=== PATIENT | female | born 1990 | race Caucasian/White ===

== ENCOUNTER → 2017-07-31 | Outpatient (CLI) | payer MEDICAID ==
--- NOTE | 2017-07-31 10:20 | RADIOLOGY REPORT (SQ) ---
EXAM DESCRIPTION: SHOULDER BILAT 2 OR MORE VIEWS COMPLETED DATE/TIME: 07/31/2017 10:12 am REASON FOR STUDY: PAIN IN RIGHT SHOULDER, PAIN IN LEFT SHOULDER M54.12 RADICULOPATHY, CERVICAL ZEESHAN ON M25.512 PAIN IN LEFT SHOULDER M25.511 PAIN IN RIGHT SHOULDER COMPARISON: 01/14/2015. NUMBER OF VIEWS: Three views. TECHNIQUE: Internal rotation, external rotation, and Y view images acquired of the right and left sh oulder. LIMITATIONS: None. FINDINGS: MINERALIZATION: Normal. BONES: No acute fracture or dislocation. No worrisome bone lesions. No significant osteophytes. GLENOHUMERAL JOINT: No significant findings. ACROMIOCLAVICULAR JOINT: No large osteophytes. SOFT TISSUES: No calcifications. VISUALIZED RIBS, SPINE, AND LUNG: No other significant finding. OTHER: No other significant finding. IMPRESSION: NEGATIVE STUDY OF THE RIGHT AND LEFT SHOULDERS. NO EXPLANATION FOR PAIN. TECHNICAL DOCUMENTATION: JOB ID: [id number] [employer]- All Rights Reserved
--- NOTE | 2017-07-31 10:21 | RADIOLOGY REPORT (SQ) ---
EXAM DESCRIPTION: C SP 4 OR 5 VIEWS COMPLETED DATE/TIME: 07/31/2017 10:12 am REASON FOR STUDY: RADICULOPATHY, CERVICAL REGION M54.12 RADICULOPATHY, CERVICAL REGION M25.512 RADHA N IN LEFT SHOULDER M25.511 PAIN IN RIGHT SHOULDER COMPARISON: None. NUMBER OF VIEWS: Five views. TECHNIQUE: AP, lateral, obliques and odontoid radiographic images acquired of the cervical spine. LIMITATIONS: None. FINDINGS: MINERALIZATION: Normal. ALIGNMENT: Anatomic. VERTEBRAE: Vertebral bodies of normal height. DISCS: No significant osteophytes or sclerosis. Disc height maintained. FORAMINA: No osteophytes or foraminal narrowing. LATERAL AND POSTERIOR ELEMENTS: Facets, lateral masses and spinous processes without significant find ings. HARDWARE: None in the spine. SOFT TISSUES: No masses or calcifications. Lung apices clear. OTHER: No other significant finding. IMPRESSION: NO SIGNIFICANT RADIOGRAPHIC FINDING IN THE CERVICAL SPINE. TECHNICAL DOCUMENTATION: JOB ID: [id number] [employer]- All Rights Reserved
== END ==
LOC: OD 09:04
PROVIDERS: ATTEND Physician Assistant
DX: M25.512 Pain in left shoulder (principal); M25.511 Pain in right shoulder; M54.12 Radiculopathy, cervical region
CPT/HCPCS: 72050

== ENCOUNTER 2018-04-23 12:56 | Emergency (ER) | payer MEDICAID ==
[2018-04-23 14:19] LABS: ABSOLUTE BASOPHILS # (AUTO) 0.1 10^3/uL (0.0-0.2); ABSOLUTE EOSINOPHILS # (AUTO) 0.5 10^3/uL (0.0-0.6); ABSOLUTE MONOCYTES (AUTO) 0.4 10^3/uL (0.1-1.4); ABSOLUTE NEUT (AUTO) 3.6 10^3/uL (1.7-8.2); BASOPHILS % (AUTO) 1.1 % (0-2); EOSINOPHILS % (AUTO) 7.5 % (0-6); HEMATOCRIT 37.7 % (36.0-47.0); HEMOGLOBIN 12.5 g/dL (12.0-15.5); LYMPHOCYTES % (AUTO) 30.6 % (13-45); MEAN CORPUSCULAR HEMOGLOBIN 25.3 pg (27.0-33.4); MEAN CORPUSCULAR HGB CONC 33.1 g/dL (32.0-36.0); MEAN CORPUSCULAR VOLUME 76 fl (80-97); MONOCYTES % (AUTO) 5.8 % (3-13); PLATELET COUNT 243 10^3/uL (150-450); RED BLOOD COUNT 4.93 10^6/uL (3.72-5.28); RED CELL DISTRIBUTION WIDTH 15.4 % (11.5-14.0); TOTAL CELLS COUNTED % (AUTO) 100 %; WHITE BLOOD COUNT 6.6 10^3/uL (4.0-10.5)
[2018-04-23 14:44] LABS: ANION GAP 10 (5-19); BLOOD UREA NITROGEN 12 mg/dL (7-20); CARBON DIOXIDE 29 mmol/L (22-30); CHLORIDE 104 mmol/L (98-107); GLUCOSE 83 mg/dL (75-110); POTASSIUM 4.1 mmol/L (3.6-5.0)
[2018-04-23 16:12] LABS: APPEARANCE,URINE SLIGHTLY-CLOUDY; BILIRUBIN,URINE NEGATIVE (NEGATIVE); COLOR,URINE YELLOW; GLUCOSE, URINE NEGATIVE (NEGATIVE); KETONES,URINE NEGATIVE (NEGATIVE); LEUKOCYTE ESTERASE,URINE NEGATIVE (NEGATIVE); NITRITE,URINE NEGATIVE (NEGATIVE); PROTEIN,URINE NEGATIVE (NEGATIVE); URINE SPECIFIC GRAVITY 1.021; UROBILINOGEN,URINE NEGATIVE mg/dL (<2.0)
--- NOTE | 2018-04-23 16:58 | RADIOLOGY REPORT (SQ) ---
EXAM DESCRIPTION: U/S NON OB PEL W/DOPPLER COMPLETED DATE/TIME: 04/23/2018 4:47 pm REASON FOR STUDY: llq pain LMP 04/09/2018 COMPARISON: None. TECHNIQUE: Dynamic and static grayscale images acquired of the pelvis via transabdominal approach an d recorded on PACS. Additional selected color Doppler and spectral images recorded. LIMITATIONS: Bowel gas prevented evaluation of the ovaries. FINDINGS: UTERUS: Contour normal. No mass. ENDOMETRIAL STRIPE: No focal or generalized thickening. No masses. CERVIX: 3.3 cm. Small nabothian cyst. RIGHT OVARY AND DOPPLER: Ovary obscured by gas. LEFT OVARY AND DOPPLER: Ovary obscured by gas. FREE FLUID: None noted. OTHER: No other significant finding. MEASUREMENTS: UTERUS: 9.6 x 4.6 x 3.8 cm. ENDOMETRIAL STRIPE: 2 mm. RIGHT OVARY: Ovary not seen LEFT OVARY: Ovary not seen IMPRESSION: Small nabothian cysts. Study is otherwise unremarkable but limited as described. TECHNICAL DOCUMENTATION: JOB ID: [id number] [employer]- All Rights Reserved Rev Reading location - IP/workstation name: [email or web address]
--- NOTE | 2018-04-23 17:18 | ER Document Report ---
ED General - General Chief Complaint: Abdominal Pain Stated Complaint: ABDOMINAL PAIN Time Seen by Provider: 04/23/18 13:44 TRAVEL OUTSIDE OF THE [place]. IN LAST 30 DAYS: No - Related Data Allergies/Adverse Reactions: naproxen [Naproxen] Allergy (Verified 04/23/18 12:58) Past Medical History - Social History Smoking Status: Current Every Day Smoker Chew tobacco use (# tins/day): No Frequency of alcohol use: None Drug Abuse: Marijuana Family History: Reviewed & Not Pertinent Patient has suicidal ideation: No Patient has homicidal ideation: No Pulmonary Medical History: Reports: Hx Asthma Renal/ Medical History: Denies: Hx Peritoneal Dialysis Psychiatric Medical History: Reports: Hx Attention Deficit Hyperactivity Disorder, Hx Bipolar Disorder, Hx Depression Traumatic Medical History: Reports: Hx Fractures - shoulder, hip Past Surgical History: Reports: Hx Section - X3, Hx Orthopedic Surgery - Hip surgeries, Hx Tubal Ligation - Immunizations Hx Diphtheria, Pertussis, Tetanus Vaccination: Yes Physical Exam - Vital signs Vitals: Temp Pulse Resp BP Pulse Ox 98.5 F 88 16 120/62 100 04/23/18 13:04 04/23/18 13:04 04/23/18 13:04 04/23/18 13:04 04/23/18 13:04 Course - Vital Signs Vital signs: Temp Pulse Resp BP Pulse Ox 98.5 F 88 16 120/62 100 04/23/18 13:04 04/23/18 13:04 04/23/18 13:04 04/23/18 13:04 04/23/18 13:04 - Laboratory Result Diagrams: 04/23/18 13:59 04/23/18 13:59 Laboratory results interpreted by me: 04/23/18 13:59 MCV 76 L MCH 25.3 L RDW 15.4 H Eosinophils % 7.5 H Discharge - Discharge Clinical Impression: Abdominal pain Qualifiers: Abdominal location: unspecified location Qualified Code(s): R10.9 - Unspecified abdominal pain Condition: Good Disposition: HOME, SELF-CARE Instructions: Abdominal Pain ([facility]) Additional Instructions: Her laboratory studies today donot show any signs of ultrasound is also negative for any acute abnormality. Please continue take Tylenol Motrin for pain control return to ER symptoms worsen recommend following up with OB/ HURRICANE TRACKER for any further concerns. Prescriptions: Dicyclomine HCl [Bentyl 20 mg Tablet] 20 mg PO QID #30 tablet Ondansetron HCl [Zofran 4 mg Tablet] 1 - 2 tab PO Q6 #30 tablet Forms: Return to Work
[2018-04-23 17:20] VITALS: BP 124/88
--- NOTE | 2018-04-23 20:28 | ER Document Report ---
ED General - General Chief Complaint: Abdominal Pain Stated Complaint: ABDOMINAL PAIN Time Seen by Provider: 04/23/18 13:44 TRAVEL OUTSIDE OF THE [place] IN LAST 30 DAYS: No - HPI Patient complains to provider of: Lower abdominal pain Notes: Patient coming in stating she has a history of tubal ligation states that she passed large clot that her data had material in it consistent with toes and fingers concern is that since that time she continues to have pain. Patient states this was approximately 4 days ago. Pain lower abdomen mostly in the left lower quadrant. Patient otherwise resting comfortably denies any fever chills nausea vomiting vaginal bleeding vaginal discharge at this time. - Related Data Allergies/Adverse Reactions: naproxen [Naproxen] Allergy (Verified 04/23/18 12:58) Past Medical History - Social History Smoking Status: Current Every Day Smoker Chew tobacco use (# tins/day): No Frequency of alcohol use: None Drug Abuse: Marijuana Family History: Reviewed & Not Pertinent Patient has suicidal ideation: No Patient has homicidal ideation: No Pulmonary Medical History: Reports: Hx Asthma Renal/ Medical History: Denies: Hx Peritoneal Dialysis Psychiatric Medical History: Reports: Hx Attention Deficit Hyperactivity Disorder, Hx Bipolar Disorder, Hx Depression Traumatic Medical History: Reports: Hx Fractures - shoulder, hip Past Surgical History: Reports: Hx Section - X3, Hx Orthopedic Surgery - Hip surgeries, Hx Tubal Ligation - Immunizations Hx Diphtheria, Pertussis, Tetanus Vaccination: Yes Review of Systems - Review of Systems Constitutional: No symptoms reported EENT: No symptoms reported Cardiovascular: No symptoms reported Respiratory: No symptoms reported Gastrointestinal: Abdominal pain Genitourinary: No symptoms reported Female Genitourinary: No symptoms reported Musculoskeletal: No symptoms reported Skin: No symptoms reported Hematologic/Lymphatic: No symptoms reported Neurological/Psychological: No symptoms reported Physical Exam - Vital signs Vitals: Temp Pulse Resp BP Pulse Ox 98.5 F 88 16 120/62 100 04/23/18 13:04 04/23/18 13:04 04/23/18 13:04 04/23/18 13:04 04/23/18 13:04 Interpretation: Normal - General General appearance: Appears well, Alert - HEENT Head: Normocephalic, Atraumatic Eyes: Normal Pupils: PERRL - Respiratory Respiratory status: No respiratory distress Chest status: Nontender Breath sounds: Normal Chest palpation: Normal - Cardiovascular Rhythm: Regular Heart sounds: Normal auscultation Murmur: No - Abdominal Inspection: Normal Distension: No distension Bowel sounds: Normal Tenderness: Nontender Organomegaly: No organomegaly - Back Back: Normal, Nontender - Extremities General upper extremity: Normal inspection, Nontender, Normal color, Normal ROM , Normal temperature General lower extremity: Normal inspection, Nontender, Normal color, Normal ROM , Normal temperature, Normal weight bearing. No: Randy's sign - Neurological Neuro grossly intact: Yes Cognition: Normal Orientation: AAOx4 Goldie Coma Scale Eye Opening: Spontaneous Goldie Coma Scale Verbal: Oriented Willet Coma Scale Motor: Obeys Commands Goldie Coma Scale Total: 15 Speech: Normal Motor strength normal: LUE, RUE, LLE, RLE Sensory: Normal - Psychological Associated symptoms: Normal affect, Normal mood - Skin Skin Temperature: Warm Skin Moisture: Dry Skin Color: Normal Course - Re-evaluation Re-evalutation: 04/23/18 20:27 Ultrasound does not show any acute findings. Laboratory studies not show any signs of or any other acute etiology. Patient upon reevaluation resting comfortably. Suspect any significant infectious or surgical pathology for the patient's abdominal pain. Patient will be treated with Tylenol Motrin Bentyl patient encouraged follow-up primary care physician. The patient presents with abdominal pain without signs of peritonitis or other life- threatening or serious etiology. The patient appears stable for discharge and has been instructed to return immediately if the symptoms worsen in any way, or in 8-12hr if not improved for re-evaluation. The patient has been instructed to return if the symptoms worsen or change in any way. - Vital Signs Vital signs: Temp Pulse Resp BP Pulse Ox 97.8 F 68 16 124/88 H 98 04/23/18 17:19 04/23/18 17:19 04/23/18 17:19 04/23/18 17:19 04/23/18 17:19 - Laboratory Result Diagrams: 04/23/18 13:59 04/23/18 13:59 Laboratory results interpreted by me: 04/23/18 13:59 MCV 76 L MCH 25.3 L RDW 15.4 H Eosinophils % 7.5 H Discharge - Discharge Clinical Impression: Abdominal pain Qualifiers: Abdominal location: unspecified location Qualified Code(s): R10.9 - Unspecified abdominal pain Condition: Good Disposition: HOME, SELF-CARE Instructions: Abdominal Pain ([facility]) Additional Instructions: Her laboratory studies today donot show any signs of ultrasound is also negative for any acute abnormality. Please continue take Tylenol Motrin for pain control return to ER symptoms worsen recommend following up with OB/ SENIOR ANIMATOR for any further concerns. Prescriptions: Dicyclomine HCl [Bentyl 20 mg Tablet] 20 mg PO QID #30 tablet Ondansetron HCl [Zofran 4 mg Tablet] 1 - 2 tab PO Q6 #30 tablet Forms: Return to Work
== END 2018-04-23 17:20 | disposition home or self-care (01) ==
LOC: ER 12:56
DX: R10.30 Lower abdominal pain, unspecified (principal); F17.200 Nicotine dependence, unspecified, uncomplicated; Z98.51 Tubal ligation status
CPT/HCPCS: 36415; 76856; 80048; 81001; 84702; 85025; 86900; 86901; 93976; 99284

== ENCOUNTER 2019-02-08 12:12 | Emergency (ER) | payer MEDICAID ==
--- NOTE | 2019-02-08 13:44 | ER Document Report ---
ED GI/ - General Chief Complaint: OB Problem (<20wks) Stated Complaint: ABDOMINAL PAIN Time Seen by Provider: 02/08/19 13:25 Primary Care Provider: [facility] [Provider Group] - Follow up as needed Mode of Arrival: Ambulatory Information source: Patient, [facility] Records Notes: 29-year-old female patient comes emergency room with concerns about possible ec topic . She had a bilateral tubal ligation in 2017. Her last menstrual period was 12/30/2018, she is always quite regular. She did 7 separate home tests and all were positive. She does not have any abdominal pain. TRAVEL OUTSIDE OF THE [place] IN LAST 30 DAYS: No - Related Data Allergies/Adverse Reactions: mushroom Allergy (Verified 02/08/19 13:20) naproxen [Naproxen] Allergy (Verified 02/08/19 13:20) Penicillins Allergy (Verified 02/08/19 13:20) Past Medical History - General Information source: Patient, [facility] Records Last Menstrual Period: 12/30/18 - Social History Smoking Status: Current Every Day Smoker Cigarette use (# per day): No - Vapes Chew tobacco use (# tins/day): No Smoking Education Provided: No Frequency of alcohol use: None Drug Abuse: None Lives with: Family Family History: Reviewed & Not Pertinent Patient has suicidal ideation: No Patient has homicidal ideation: No Pulmonary Medical History: Reports: Hx Asthma Psychiatric Medical History: Reports: Hx Attention Deficit Hyperactivity Disorder, Hx Bipolar Disorder, Hx Depression Traumatic Medical History: Reports: Hx Fractures - shoulder, hip Past Surgical History: Reports: Hx Section - X3, Hx Orthopedic Surgery - Hip surgeries, Hx Tubal Ligation - Immunizations Hx Diphtheria, Pertussis, Tetanus Vaccination: Yes Review of Systems - Review of Systems Constitutional: No symptoms reported EENT: No symptoms reported Cardiovascular: No symptoms reported Respiratory: No symptoms reported Gastrointestinal: No symptoms reported Genitourinary: No symptoms reported Female Genitourinary: See HPI, Last menstrual period - 12-30-18 Musculoskeletal: No symptoms reported Skin: No symptoms reported Hematologic/Lymphatic: No symptoms reported Neurological/Psychological: No symptoms reported Physical Exam - Vital signs Vitals: Temp Pulse Resp BP Pulse Ox 98.3 F 92 18 111/60 98 02/08/19 12:17 02/08/19 12:17 02/08/19 12:17 02/08/19 12:17 02/08/19 12:17 Interpretation: Normal - General General appearance: Appears well, Alert In distress: None - HEENT Head: Normocephalic, Atraumatic Eyes: Normal Pupils: PERRL - Respiratory Respiratory status: No respiratory distress - Cardiovascular Rhythm: Regular - Abdominal Inspection: Obese Tenderness: Nontender - Back Back: Normal - Extremities General upper extremity: Normal inspection General lower extremity: Normal inspection - Neurological Neuro grossly intact: Yes - Psychological Associated symptoms: Normal affect, Normal mood - Skin Skin Temperature: Warm Skin Moisture: Dry Skin Color: Normal Course - Vital Signs Vital signs: Temp Pulse Resp BP Pulse Ox 97.9 F 78 18 104/81 100 02/08/19 15:14 02/08/19 15:14 02/08/19 15:14 02/08/19 15:14 02/08/19 15:14 - Laboratory Result Diagrams: 02/08/19 13:49 02/08/19 13:49 Laboratory results interpreted by me: 02/08/19 02/08/19 02/08/19 13:49 13:49 13:49 MCV 79 L MCH 26.2 L RDW 15.7 H Eosinophils % 6.2 H Glucose 68 L Ur Leukocyte Esterase SMALL H Urine Ascorbic Acid 40 H - Diagnostic Test Radiology reviewed: Reports reviewed - Transvaginal ultrasound is unremarkable. Discharge - Discharge Clinical Impression: Negative test, Menstrual period late Condition: Stable Disposition: HOME, SELF-CARE Additional Instructions: Your serum test was negative. The ultrasound was unremarkable. Occasionally a menstrual period will not come due to an anovulatory cycle. You should follow-up with your primary care provider, or [facility] next week for recheck. RETURN TO THE EMERGENCY ROOM IF ANY NEW OR WORSENING SYMPTOMS. Referrals: [facility] [Provider Group] - Follow up as needed
[2019-02-08 14:15] LABS: ABSOLUTE EOSINOPHILS # (AUTO) 0.3 10^3/uL (0.0-0.6); ABSOLUTE LYMPHOCYTES (AUTO) 1.2 10^3/uL (0.5-4.7); ABSOLUTE MONOCYTES (AUTO) 0.3 10^3/uL (0.1-1.4); ABSOLUTE NEUT (AUTO) 3.5 10^3/uL (1.7-8.2); BASOPHILS % (AUTO) 0.8 % (0-2); EOSINOPHILS % (AUTO) 6.2 % (0-6); HEMATOCRIT 36.8 % (36.0-47.0); HEMOGLOBIN 12.2 g/dL (12.0-15.5); LYMPHOCYTES % (AUTO) 22.6 % (13-45); MEAN CORPUSCULAR HEMOGLOBIN 26.2 pg (27.0-33.4); MEAN CORPUSCULAR HGB CONC 33.3 g/dL (32.0-36.0); MEAN CORPUSCULAR VOLUME 79 fl (80-97); MONOCYTES % (AUTO) 5.6 % (3-13); PLATELET COUNT 246 10^3/uL (150-450); RED BLOOD COUNT 4.68 10^6/uL (3.72-5.28); RED CELL DISTRIBUTION WIDTH 15.7 % (11.5-14.0); SEGMENTED NEUTROPHILS % (AUTO) 64.8 % (42-78); TOTAL CELLS COUNTED % (AUTO) 100 %; WHITE BLOOD COUNT 5.5 10^3/uL (4.0-10.5)
--- NOTE | 2019-02-08 14:22 | RADIOLOGY REPORT (SQ) ---
EXAM DESCRIPTION: U/S OB TRANSVAGINAL W/O DOP COMPLETED DATE/TIME: 02/08/2019 2:13 pm REASON FOR STUDY: LMP 12/30/18, BLT 2017, 7 home preg + tests COMPARISON: 04/23/2018. TECHNIQUE: Transvaginal static and realtime grayscale images acquired of the pelvis. Additional joyce cted spectral and color Doppler images recorded. All images stored on PACs. CLINICAL AGE: 5 week 5 day. BHCG: Not available. LIMITATIONS: None. FINDINGS: UTERUS: No visualized intrauterine . RIGHT ADNEXA: Normal ovary with normal vascular flow. No adnexal free fluid. No adnexal masses. LEFT ADNEXA: Normal ovary with normal vascular flow. No adnexal free fluid. No adnexal masses. FREE FLUID: None. OTHER: No other significant finding. IMPRESSION: NO VISUALIZED INTRA- OR EXTRAUTERINE . bHCG LEVEL NOT AVAILABLE FOR CORRELATION WITH US FINDINGS. ECTOPIC CANNOT BE EXCLUDED. FOLLOW-UP ULTRASOUND AND SERIAL BHCG LEVELS STRONGLY RECOMMENDED TO ACCURATELY ASSESS STATU S. TECHNICAL DOCUMENTATION: JOB ID: [id number] [employer]- All Rights Reserved Reading location - IP/workstation name: [email or web address]
[2019-02-08 14:31] LABS: ALANINE AMINOTRANSFERASE 20 U/L (9-52); ALBUMIN 3.7 g/dL (3.5-5.0); ALKALINE PHOSPHATASE 83 U/L (38-126); ANION GAP 7 (5-19); ASPARTATE AMINO TRANSFERASE 17 U/L (14-36); BILIRUBIN,DIRECT 0.2 mg/dL (0.0-0.4); BILIRUBIN,TOTAL 0.4 mg/dL (0.2-1.3); BLOOD UREA NITROGEN 11 mg/dL (7-20); CALCIUM 9.2 mg/dL (8.4-10.2); CARBON DIOXIDE 29 mmol/L (22-30); CHLORIDE 104 mmol/L (98-107); POTASSIUM 4.1 mmol/L (3.6-5.0); SODIUM 139.8 mmol/L (137-145); TOTAL PROTEIN 6.7 g/dL (6.3-8.2)
[2019-02-08 14:32] LABS: APPEARANCE,URINE SLIGHTLY-CLOUDY; BILIRUBIN,URINE NEGATIVE (NEGATIVE); COLOR,URINE YELLOW; GLUCOSE, URINE NEGATIVE (NEGATIVE); KETONES,URINE NEGATIVE (NEGATIVE); LEUKOCYTE ESTERASE,URINE SMALL (NEGATIVE); NITRITE,URINE NEGATIVE (NEGATIVE); PROTEIN,URINE NEGATIVE (NEGATIVE); URINE SPECIFIC GRAVITY 1.021; UROBILINOGEN,URINE NEGATIVE mg/dL (<2.0)
[2019-02-08 14:49] LABS: GLUCOSE 68 mg/dL (75-110)
[2019-02-08 15:15] VITALS: BP 104/81
== END 2019-02-08 15:16 | disposition home or self-care (01) ==
LOC: ER 12:12
DX: Z32.02 Encounter for pregnancy test, result negative (principal); R10.9 Unspecified abdominal pain; Z88.0 Allergy status to penicillin; Z98.51 Tubal ligation status
CPT/HCPCS: 36415; 76817; 80053; 81001; 84702; 85025; 99284

== ENCOUNTER 2020-01-26 09:19 | Emergency (ER) | payer OTHER, MEDICAID ==
[2020-01-26 09:33] VITALS: BP 124/75
--- NOTE | 2020-01-26 09:57 | ER Document Report ---
HPI - HPI Patient complains to provider of: cough fever Time Seen by Provider: 01/26/20 09:42 Onset: Other Pain Level: 4 Context: 30-year-old female with no prior history presents emergency department with complaints of cough congestion and fever. Reports symptoms started on Sunday. Denies vomiting diarrhea. Reports it hurts when she coughs. Patient reports she is a dependent. No recent exposure to anybody overseas or exposed to the coronavirus. Patient did not receive flu vaccine this year. Associated Symptoms: Nonproductive cough, Fever Exacerbated by: Coughing, Deep breathing Relieved by: Denies Similar symptoms previously: No Recently seen / treated by doctor: No - CONSTITUTIONAL Constitutional: DENIES: Fever, Chills - EENT EENT: REPORTS: Sore Throat - w/cough. DENIES: Ear Pain, Eye problems - CARDIOVASCULAR Cardiovascular: REPORTS: Chest pain - upper chest w/cough - RESPIRATORY Respiratory: REPORTS: Coughing - x 3 day. 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 Lives with: Family Family History: Reviewed & Not Pertinent Patient has suicidal ideation: No Patient has homicidal ideation: No Pulmonary Medical History: Reports: Hx Asthma Renal/ Medical History: Denies: Hx Peritoneal Dialysis Psychiatric Medical History: Reports: Hx Attention Deficit Hyperactivity Disorder, Hx Bipolar Disorder, Hx Depression Traumatic Medical History: Reports: Hx Fractures - shoulder, hip Past Surgical History: Reports: Hx Section - X3, Hx Orthopedic Surgery - Hip surgeries, Hx Tubal Ligation - Immunizations Hx Diphtheria, Pertussis, Tetanus Vaccination: Yes Vertical Provider Document - CONSTITUTIONAL Agree With Documented VS: Yes Exam Limitations: No Limitations General Appearance: WD/WN, No Apparent Distress - INFECTION CONTROL TRAVEL OUTSIDE OF THE [place] IN LAST 30 DAYS: No - HEENT HEENT: Atraumatic, Normocephalic. negative: Conjuctival Injection - NECK Neck: Supple - RESPIRATORY Respiratory: No Respiratory Distress - CARDIOVASCULAR Cardiovascular: Tachycardia - MUSCULOSKELETAL/EXTREMETIES Musculoskeletal/Extremeties: ELIGIOROCAEL - NEURO Level of Consciousness: Awake, Alert, Appropriate - DERM Integumentary: Warm, Dry Course - Re-evaluation Re-evalutation: 01/26/20 11:17 Laboratory 01/26/20 09:50 Influenza A (Rapid) NEGATIVE Influenza B (Rapid) NEGATIVE Chest X-Ray 01/26/20 09:44 IMPRESSION: NO ACUTE RADIOGRAPHIC FINDING IN THE CHEST. Flu negative chest x-ray negative. Patient was instructed on the importance of monitoring to take Tylenol as indicated push fluids follow-up with a provider within 1 week for recheck. She was also instructed on the importance of good handwashing not sharing food or drink with her kids. She verbalized u nderstanding to all instructions - Vital Signs Vital signs: Temp Pulse Resp BP Pulse Ox 98.6 F 101 H 20 124/75 97 01/26/20 09:28 01/26/20 09:28 01/26/20 09:28 01/26/20 09:28 01/26/20 09:28 - Diagnostic Test Radiology reviewed: Image reviewed, Reports reviewed Discharge - Discharge Clinical Impression: Cough Fever Qualifiers: Fever type: unspecified Qualified Code(s): R50.9 - Fever, unspecified Condition: Stable Disposition: HOME, SELF-CARE Instructions: Fever ([facility]), Use of Thie-Fsc-[place] Ibuprofen ([facility]), Tessalon Perles ([facility]) Additional Instructions: *You have been evaluated for a cough, fever *Your flu test was negative *Your chest x-ray is negative for pneumonia *Take medication as prescribed *Increase fluids,good frequent handwashing, do not share food or drinks *Monitor your temperature, take Tylenol as indicated *Follow up with a primary care provider within 1 week for recheck *Return to ED for increasing fever, cough, worsening condition, changes, needs Prescriptions: Benzonatate [Tessalon Perles 100 mg Capsule] 100 mg PO ASDIR PRN #20 capsule PRN Reason: Referrals: PROMISE NANCE DO [NO LOCAL MD] - Follow up in 1 week
[2020-01-26 10:21] LABS: A TYPE INFLUENZA AG NEGATIVE (NEGATIVE); B INFLUENZA AG NEGATIVE (NEGATIVE)
--- NOTE | 2020-01-26 11:10 | RADIOLOGY REPORT (SQ) ---
EXAM DESCRIPTION: CHEST 2 VIEWS COMPLETED DATE/TIME: 01/26/2020 11:03 am REASON FOR STUDY: cough COMPARISON: None. EXAM PARAMETERS: NUMBER OF VIEWS: two views TECHNIQUE: Digital Frontal and Lateral radiographic views of the chest acquired. RADIATION DOSE: NA LIMITATIONS: none FINDINGS: LUNGS AND PLEURA: No opacities, masses or pneumothorax. No pleural effusion. MEDIASTINUM AND HILAR STRUCTURES: No masses or contour abnormalities. HEART AND VASCULAR STRUCTURES: Heart normal size. No evidence for failure. BONES: No acute findings. HARDWARE: None in the chest. OTHER: No other significant finding. IMPRESSION: NO ACUTE RADIOGRAPHIC FINDING IN THE CHEST. TECHNICAL DOCUMENTATION: JOB ID: [id number] 2010 [employer]- All Rights Reserved Reading location - IP/workstation name: [email or web address]
== END 2020-01-26 11:35 | disposition home or self-care (01) ==
LOC: ER 09:19
DX: R05 Cough (principal); R50.9 Fever, unspecified; R09.81 Nasal congestion; J02.9 Acute pharyngitis, unspecified; R07.9 Chest pain, unspecified; F17.210 Nicotine dependence, cigarettes, uncomplicated; J45.909 Unspecified asthma, uncomplicated
CPT/HCPCS: 71046; 87804; 99283

== ENCOUNTER 2020-05-20 20:00 | Emergency (ER) | payer OTHER, MEDICAID ==
[2020-05-20] MEDS ORDERED: CYCLOBENZAPRINE HCL 10 MG TABLET PO ONE (20:27)
--- NOTE | 2020-05-20 20:30 | ER Document Report ---
ED Medical Screen (RME) - General Chief Complaint: Numbness Stated Complaint: LEFT ARM NUMBNESS/LEFT SIDE NUMBNESS Time Seen by Provider: 05/20/20 20:22 Mode of Arrival: Ambulatory Information source: Patient Notes: HPI; 30-year-old female presents to the emergency room complaining of numbness to her left upper extremity that started earlier today. Patient states she had similar symptoms to her right arm a week ago that is since resolved. She denies any generalized weakness. No slurred speech. No other neurological complaints. Denies any trauma or injury. Patient is right-handed. PE: Alert and oriented x3. PERRLA, EOMI, negative fast exam. Negative pain on palpation to the cervical spine. There is tenderness over the left trapezius muscle. Material Handler Floorperson strength is equal and adequate bilaterally. Patient states she does have decreased sensation to the left arm but is able to fully move it without difficulty. She denies any chance of . Lungs: Clear to auscultation without rales, rhonchi, wheezes. Heart: Regular rate and rhythm without murmurs, rubs, gallops. Patient is ambulatory with a steady gait. I have greeted and performed a rapid initial assessment of this patient. A comprehensive ED assessment and evaluation of the patient, analysis of test results and completion of the medical decision making process will be conducted by additional ED providers. I have specifically instructed the patient or family members with the patient to immediately return to any nursing staff should anything change in the patient's condition or with their chief complaint. TRAVEL OUTSIDE OF THE [place]. IN LAST 30 DAYS: No - Related Data Allergies/Adverse Reactions: mushroom Allergy (Verified 01/26/20 09:34) naproxen [Naproxen] Allergy (Verified 01/26/20 09:34) Penicillins Allergy (Verified 01/26/20 09:34) Past Medical History Pulmonary Medical History: Reports: Hx Asthma Renal/ Medical History: Denies: Hx Peritoneal Dialysis Psychiatric Medical History: Reports: Hx Attention Deficit Hyperactivity D isorder, Hx Bipolar Disorder, Hx Depression Traumatic Medical History: Reports: Hx Fractures - shoulder, hip Past Surgical History: Reports: Hx Section - X3, Hx Orthopedic Surgery - Hip surgeries, Hx Tubal Ligation - Immunizations Hx Diphtheria, Pertussis, Tetanus Vaccination: Yes Physical Exam - Vital signs Vitals: Temp Pulse Resp BP Pulse Ox 99.2 F 84 16 133/72 H 99 05/20/20 20:05 05/20/20 20:05 05/20/20 20:05 05/20/20 20:05 05/20/20 20:05 Course - Vital Signs Vital signs: Temp Pulse Resp BP Pulse Ox 99.2 F 84 16 133/72 H 99 05/20/20 20:05 05/20/20 20:05 05/20/20 20:05 05/20/20 20:05 05/20/20 20:05
--- NOTE | 2020-05-20 21:01 | RADIOLOGY REPORT (SQ) ---
EXAM DESCRIPTION: CT CERVICAL SPINE WITHOUT IV CONTRAST COMPLETED DATE/TME: 05/20/2020 20:28 CLINICAL HISTORY: 30 years, Female, numbness to arm COMPARISON: EXAM DESCRIPTION: CLINICAL HISTORY: numbness to arm COMPARISON: None Available TECHNIQUE: Contiguous axial images of the cervical spine were obtained without the administration of intravenous contrast followed by reconstruction images. This exam was performed according to our departmental dose-optimization program, which includes automated exposure control, adjustment of the mA and/or kV according to patient size and/or use of iterative reconstruction technique. FINDINGS: There is no acute fracture or subluxation. Prevertebral soft tissues are within normal limits. IMPRESSION: No acute fracture or subluxation
[2020-05-21 00:10] VITALS: BP 132/70
== END 2020-05-21 00:30 | disposition left against medical advice (07) ==
LOC: ER 20:00
DX: Z53.20 Procedure and treatment not carried out because of patient's decision for unspecified reasons (principal); R20.0 Anesthesia of skin; J45.909 Unspecified asthma, uncomplicated
CPT/HCPCS: 72125; 99281

== ENCOUNTER 2020-05-22 20:10 | Emergency (ER) | payer MEDICAID, OTHER ==
--- NOTE | 2020-05-22 20:52 | ER Document Report ---
ED Medical Screen (RME) - General Chief Complaint: Chest Pain Stated Complaint: CHEST PAIN, NUMBNESS LEFT SIDE OF BODY Time Seen by Provider: 05/22/20 20:48 Mode of Arrival: Ambulatory Information source: Patient Notes: This is a 30-year-old female presented to the emergency room today with left- sided tingling and numbness over the last 4 to 6 hours she also has left-sided chest pain with radiation down her arm. TRAVEL OUTSIDE OF THE [place] IN LAST 30 DAYS: No - Related Data Allergies/Adverse Reactions: mushroom Allergy (Verified 01/26/20 09:34) naproxen [Naproxen] Allergy (Verified 01/26/20 09:34) Penicillins Allergy (Verified 01/26/20 09:34) Past Medical History Pulmonary Medical History: Reports: Hx Asthma Renal/ Medical History: Denies: Hx Peritoneal Dialysis Psychiatric Medical History: Reports: Hx Attention Deficit Hyperactivity Disorder, Hx Bipolar Disorder, Hx Depression Traumatic Medical History: Reports: Hx Fractures - shoulder, hip Past Surgical History: Reports: Hx Section - X3, Hx Orthopedic Surgery - Hip surgeries, Hx Tubal Ligation - Immunizations Hx Diphtheria, Pertussis, Tetanus Vaccination: Yes Physical Exam - Vital signs Vitals: Temp Pulse Resp BP Pulse Ox 98.5 F 104 H 16 110/80 100 05/22/20 20:47 05/22/20 20:47 05/22/20 20:47 05/22/20 20:47 05/22/20 20:47 Course - Vital Signs Vital signs: Temp Pulse Resp BP Pulse Ox 98.5 F 104 H 16 110/80 100 05/22/20 20:47 05/22/20 20:47 05/22/20 20:47 05/22/20 20:47 05/22/20 20:47
--- NOTE | 2020-05-22 21:19 | RADIOLOGY REPORT (SQ) ---
EXAM DESCRIPTION: CT HEAD WITHOUT IV CONTRAST COMPLETED DATE/TME: 05/22/2020 20:50 CLINICAL HISTORY: 30 years, Female, left side tingling COMPARISON: None. TECHNIQUE: Noncontrast imaging of the brain was performed. Images stored on PACS. All CT scanners at this facility use dose modulation, iterative reconstruction, and/or weight based dosing when appropriate to reduce radiation dose to as low as reasonably achievable (ALARA). [facility]: Dose Right [facility]: CareDose [facility]: Dose Right [facility]: Teradose 4D [facility]: [employer] LIMITATIONS: None. FINDINGS: There is no acute intracranial hemorrhage, abnormal mass effect, or major vascular territorial infarction. There is no hydrocephalus. There is no extra-axial hemorrhage. The calvarium is intact. The visualized portions of the paranasal sinuses and mastoid air cells are clear. IMPRESSION: No acute abnormality as above. TECHNICAL DOCUMENTATION: Quality ID # [id number]: Final reports with documentation of one or more dose reduction techniques (e.g., Automated exposure control, adjustment of the mA and/or kV according to patient size, use of iterative reconstruction technique) copyright 2011 [employer]- All Rights Reserved
[2020-05-22 21:36] LABS: ABSOLUTE BASOPHILS # (AUTO) 0.1 10^3/uL (0.0-0.2); ABSOLUTE EOSINOPHILS # (AUTO) 0.5 10^3/uL (0.0-0.6); ABSOLUTE LYMPHOCYTES (AUTO) 2.9 10^3/uL (0.5-4.7); ABSOLUTE MONOCYTES (AUTO) 0.5 10^3/uL (0.1-1.4); ABSOLUTE NEUT (AUTO) 4.8 10^3/uL (1.7-8.2); BASOPHILS % (AUTO) 1.2 % (0-2); EOSINOPHILS % (AUTO) 6.1 % (0-6); HEMATOCRIT 41.1 % (36.0-47.0); HEMOGLOBIN 13.9 g/dL (12.0-15.5); LYMPHOCYTES % (AUTO) 32.5 % (13-45); MEAN CORPUSCULAR HEMOGLOBIN 27.3 pg (27.0-33.4); MEAN CORPUSCULAR HGB CONC 33.7 g/dL (32.0-36.0); MEAN CORPUSCULAR VOLUME 81 fl (80-97); PLATELET COUNT 263 10^3/uL (150-450); RED BLOOD COUNT 5.08 10^6/uL (3.72-5.28); RED CELL DISTRIBUTION WIDTH 14.5 % (11.5-14.0); SEGMENTED NEUTROPHILS % (AUTO) 54.2 % (42-78); TOTAL CELLS COUNTED % (AUTO) 100 %; WHITE BLOOD COUNT 8.9 10^3/uL (4.0-10.5)
[2020-05-22 21:56] LABS: ALBUMIN 4.6 g/dL (3.5-5.0); ALKALINE PHOSPHATASE 67 U/L (38-126); ANION GAP 8 (5-19); ASPARTATE AMINO TRANSFERASE 23 U/L (14-36); BILIRUBIN,TOTAL 0.2 mg/dL (0.2-1.3); BLOOD UREA NITROGEN 14 mg/dL (7-20); CALCIUM 9.7 mg/dL (8.4-10.2); CARBON DIOXIDE 26 mmol/L (22-30); CHLORIDE 104 mmol/L (98-107); GLUCOSE 74 mg/dL (75-110); POTASSIUM 4.2 mmol/L (3.6-5.0); TOTAL PROTEIN 7.8 g/dL (6.3-8.2)
--- NOTE | 2020-05-22 22:22 | RADIOLOGY REPORT (SQ) ---
EXAM DESCRIPTION: X-ray, single view of the chest CLINICAL HISTORY: 30 years Female, chest pain COMPARISON: Two views of the chest January 26, 2020 FINDINGS: Lungs: Lungs are clear. No pneumonia or edema. No pneumothorax or pleural effusion. Mediastinum: Cardiac and mediastinal silhouette are normal. Bones: Osseous structures are normal. IMPRESSION: No acute process. No significant interval change.
--- NOTE | 2020-05-22 22:41 | EKG REPORT ---
SEVERITY:- BORDERLINE ECG - SINUS TACHYCARDIA PROBABLE LEFT ATRIAL ABNORMALITY : Confirmed by: Rafita Valle MD 22-May-2020 22:40:47
[2020-05-22 22:50] LABS: APPEARANCE,URINE SLIGHTLY-CLOUDY; BILIRUBIN,URINE NEGATIVE (NEGATIVE); COLOR,URINE YELLOW; GLUCOSE, URINE NEGATIVE (NEGATIVE); KETONES,URINE NEGATIVE (NEGATIVE); LEUKOCYTE ESTERASE,URINE NEGATIVE (NEGATIVE); NITRITE,URINE NEGATIVE (NEGATIVE); PROTEIN,URINE NEGATIVE (NEGATIVE); UROBILINOGEN,URINE NEGATIVE mg/dL (<2.0)
[2020-05-22 23:17] LABS: URINE AMPHETAMINES SCREEN NEGATIVE; URINE BARBITURATES SCREEN NEGATIVE; URINE BENZODIAZEPINES SCREEN NEGATIVE; URINE COCAINE SCREEN NEGATIVE; URINE MARIJUANA (THC) SCREEN NEGATIVE; URINE METHADONE SCREEN NEGATIVE; URINE PHENCYCLIDINE SCREEN NEGATIVE
[2020-05-22 23:31] VITALS: BP 117/69
--- NOTE | 2020-05-23 00:23 | ER Document Report ---
Entered by KELBY INIGUEZ SCRIBE 05/22/202201 Acting as scribe for:ANGELA DAWSON IV, MD ED General - General Chief Complaint: Chest Pain Stated Complaint: CHEST PAIN, NUMBNESS LEFT SIDE OF BODY Time Seen by Provider: 05/22/20 20:48 Primary Care Provider: JOHNY EAST MD [HONORARY] - Follow up as needed Mode of Arrival: Ambulatory Information source: Patient Notes: This 30 year old female patient presents to the ED today with complaints of intermittent left-sided chest pain that started prior to arrival. Patient states that the pain is sharp and stabbing in nature with no radiation. She reports that she was seen here yesterday by an APC for left-sided numbness/tingling from her face down to her extremities that started yesterday morning; however, she eloped before receiving further medical evaluation. She notes continued n umbness/tingling to the left side of her body. Denies shortness of breath, nausea, vomiting, dizziness, or blurred vision. Denies history of hypertension. Patient is right hand dominant. TRAVEL OUTSIDE OF THE [place] IN LAST 30 DAYS: No - Related Data Allergies/Adverse Reactions: mushroom Allergy (Verified 01/26/20 09:34) naproxen [Naproxen] Allergy (Verified 01/26/20 09:34) Penicillins Allergy (Verified 01/26/20 09:34) Past Medical History - General Information source: Patient - Social History Smoking Status: Former Smoker Cigarette use (# per day): No Chew tobacco use (# tins/day): No Smoking Education Provided: No Frequency of alcohol use: Occasional Drug Abuse: None Family History: Reviewed & Not Pertinent Patient has suicidal ideation: No Patient has homicidal ideation: No Pulmonary Medical History: Reports: Hx Asthma Psychiatric Medical History: Reports: Hx Attention Deficit Hyperactivity Disorder, Hx Bipolar Disorder, Hx Depression Traumatic Medical History: Reports: Hx Fractures - shoulder, hip Past Surgical History: Reports: Hx Section - X3, Hx Orthopedic Surgery - Hip surgeries, Hx Tubal Ligation - Immunizations Hx Diphtheria, Pertussis, Tetanus Vaccination: Yes Review of Systems - Review of Systems Constitutional: No symptoms reported EENT: See HPI. denies: Blurred vision Cardiovascular: See HPI, Chest pain. denies: Dizziness Respiratory: See HPI. denies: Short of breath Gastrointestinal: See HPI. denies: Nausea, Vomiting Genitourinary: No symptoms reported Female Genitourinary: No symptoms reported Musculoskeletal: No symptoms reported Skin: No symptoms reported Hematologic/Lymphatic: No symptoms reported Neurological/Psychological: See HPI, Numbness, Tingling -: Yes All other systems reviewed and negative Physical Exam - Vital signs Vitals: Temp Pulse Resp BP Pulse Ox 98.5 F 104 H 16 110/80 100 05/22/20 20:47 05/22/20 20:47 05/22/20 20:47 05/22/20 20:47 05/22/20 20:47 - General General appearance: Appears well, Alert In distress: None - HEENT Head: Normocephalic, Atraumatic Eyes: Normal Pupils: PERRL - Respiratory Respiratory status: No respiratory distress Chest status: Nontender Breath sounds: Normal Chest palpation: Normal - Cardiovascular Rhythm: Regular Heart sounds: Normal auscultation Murmur: No Friction rub: No Gallop: None auscultated - Abdominal Inspection: Normal Distension: No distension Bowel sounds: Normal Tenderness: Nontender - Abdomen soft Organomegaly: No organomegaly - Back Back: Normal, Nontender - Extremities General upper extremity: Normal inspection General lower extremity: Normal inspection - Neurological Neuro grossly intact: Yes Orientation: AAOx4 Lane Coma Scale Eye Opening: Spontaneous Lane Coma Scale Verbal: Oriented Goldie Coma Scale Motor: Obeys Commands Lane Coma Scale Total: 15 - Psychological Associated symptoms: Normal affect, Normal mood - Skin Skin Temperature: Warm Skin Moisture: Dry Skin Color: Normal Course - Re-evaluation Re-evalutation: 05/22/20 23:34 Results of ED MSE discussed with patient. The only abnormality really found was that the patient's glucose was borderline low at 74. Patient was given apple juice after initial evaluation and upon reevaluation she says all of her symptoms have resolved. Patient says she has no numbness and tingling anymore, and no chest discomfort. All questions were answered prior to discharge. Emergency signs and symptoms, reasons to return to the emergency department discussed with patient. - Vital Signs Vital signs: Temp Pulse Resp BP Pulse Ox 98.2 F 89 18 117/69 100 05/22/20 23:29 05/22/20 23:29 05/22/20 23:29 05/22/20 23:29 05/22/20 23:29 - Laboratory Result Diagrams: 05/22/20 21:12 05/22/20 21:12 Laboratory results interpreted by me: 05/22/20 05/22/20 21:12 21:12 RDW 14.5 H Eos % (Auto) 6.1 H Glucose 74 L - Diagnostic Test Radiology reviewed: Reports reviewed - EKG Interpretation by Me Additional EKG results interpreted by me: 05/22/20 23:36 EKG obtained on 05/22/2020 at 2018 hrs. was interpreted by this MD. Findings: Sinus tachycardia, rate 102, normal axis, P waves proceed QRS complexes, QRS complexes appear narrow, there are no obvious patterns of ST segment elevation or depression present to suggest acute myocardial ischemia or infarction. Impression: Sinus tachycardia with nonspecific ST segments. Discharge - Discharge Clinical Impression: Hypoglycemia Condition: Stable Disposition: HOME, SELF-CARE Additional Instructions: Return to the Emergency Department without delay if any worse. HOME CARE INSTRUCTIONS & INFORMATION: Thank you for choosing us for your medical needs. We hope you're satisfied with the care you received. After you leave, you must properly care for your problem and, at the same time, observe its progress. Any condition can change. Some illnesses can change rapidly over hours or days. If your condition worsens, return to the Emergency Department or see your physician promptly. ABOUT YOUR X-RAYS AND EKG'S: If you had an EKG or X-rays taken, they have been read by the Emergency Physician. The X-rays and EKG's will also be read by a Radiologist or Correctional Casework Specialist within 24 hours. If discrepancies are noted, you will be notified by telephone. Please be certain the ED has a correct telephone number & address where you can be reached. Also, realize that some fractures or abnormalities do not show up on initial X-rays. If your symptoms continue, see your physician. ABOUT YOUR LABORATORY TEST: If you had laboratory tests, the results have been reviewed by the Emergency Physician. Some test results (for example cultures) may not be available for several days. You will be contacted if any test result shows you need additional treatment. Please be certain the ED has a correct telephone number and address where you can be reached. ABOUT YOUR MEDICATIONS: You will receive instructions on how to take your medicine on the prescription label you receive. Additional information may be provided by the Pharmacy. If you have questions afterwards, call the ED for clarification or further instructions. Some prescribed medications may cause drowsiness. Do not perform tasks such as driving a car or operating machinery without consulting your Pharmacist. If you feel you need a refill of pain medi cation, your condition will need re-evaluation. Please do not call for a refill of any medication. ABOUT YOUR SIGNATURE: Signature of this document acknowledges to followin. Understanding that you received emergency treatment and that you may be released before al medical problems are known or treated. Please be certain the ED has a correct phone number & address where you can be reached. 2. Acknowledgement that you will arrange for follow-up care as recommended. 3. Authorization for the Emergency Physician to provide information to your follow-up Physician in order to maximize your care. AT ANY TIME, IF YOUR SYMPTOMS CHANGE SIGNIFICANTLY OR WORSEN OR YOU DEVELOP NEW SYMPTOMS, RETURN TO THE EMERGENCY DEPARTMENT IMMEDIATELY FOR RE-EVALUATION. OUR GOAL IS TO PROVIDE EXCELLENT MEDICAL CARE! WE HOPE THAT WE HAVE MET YOUR EXPECTATIONS DURING YOUR EMERGENCY DEPARTMENT VISIT AND THAT YOU FEEL YOU HAVE RECEIVED EXCELLENT CARE! Hypoglycemia You have suffered an episode of hypoglycemia (low blood sugar). Typical symptoms of hypoglycemia are shaking, sweating, headache, and confusion. When severe, unconsciousness or seizure may occur. Hypoglycemia occurs when a person taking insulin or diabetes pills has a change in the amount of blood sugar available -- due to exercise, decreased food intake, or alcohol. Should you feel symptoms of hypoglycemia again, immediately take some form of sugar such as sweetened juice. As the reaction subsides, eat a complex carbohydrate such as bread. If possible, check your blood sugar using a chemical strip. If episodes are occurring without obvious explanation, contact your physician for further evaluation. Referrals: JOHNY EAST MD [HONORARY] - Follow up as needed I personally performed the services described in the documentation, reviewed and edited the documentation which was dictated to the scribe in my presence, and it accurately records my words and actions.
== END 2020-05-22 23:49 | disposition home or self-care (01) ==
LOC: ER 20:10
DX: E16.2 Hypoglycemia, unspecified (principal); R07.9 Chest pain, unspecified; R00.0 Tachycardia, unspecified; R20.0 Anesthesia of skin; R20.2 Paresthesia of skin; J45.909 Unspecified asthma, uncomplicated; Z87.891 Personal history of nicotine dependence; Z91.018 Allergy to other foods; Z88.8 Allergy status to other drugs, medicaments and biological substances; Z88.0 Allergy status to penicillin
CPT/HCPCS: 70450; 71045; 80053; 80307; 81001; 81025; 84484; 85025; 93005; 93010; 99285

== ENCOUNTER 2020-11-03 17:02 | Emergency (ER) | payer MEDICAID ==
[2020-11-03 17:10] VITALS: BP 130/58
[2020-11-03] MEDS ORDERED: ACETAMINOPHEN 325 MG TABLET PO ONE (17:40)
--- NOTE | 2020-11-03 17:41 | ER Document Report ---
HPI - HPI Patient complains to provider of: Left foot injury Time Seen by Provider: 11/03/20 17:36 Onset: Other - 3 days Onset/Duration: Persistent Quality of pain: Achy Pain Level: 4 Context: Patient states she slipped down stairs 3 days ago injuring her left foot. Patient complains of continued pain. Patient denies any new injury. Patient denies any head injury or loss of consciousness. Associated Symptoms: denies: Fever, Nausea, Vomiting Exacerbated by: Standing, Movement, Walking Relieved by: Denies Similar symptoms previously: No Recently seen / treated by doctor: No - ROS ROS below otherwise negative: Yes Systems Reviewed and Negative: Yes All other systems reviewed and negative - NEURO Neurology: DENIES: Weakness - GASTROINTESTINAL Gastrointestinal: DENIES: Nausea, Patient vomiting - REPRODUCTIVE Reproductive: DENIES: : - MUSCULOSKELETAL Musculoskeletal: REPORTS: Extremity pain - DERM Skin Color: Normal Skin Problems: None Past Medical History - General Information source: Patient - Social History Smoking Status: Current Every Day Smoker Frequency of alcohol use: None Drug Abuse: None Lives with: Family Family History: Reviewed & Not Pertinent Pulmonary Medical History: Reports: Hx Asthma Renal/ Medical History: Denies: Hx Peritoneal Dialysis Musculoskeletal Medical History: Reports Hx Arthritis Psychiatric Medical History: Reports: Hx Attention Deficit Hyperactivity Disorder, Hx Bipolar Disorder, Hx Depression Traumatic Medical History: Reports: Hx Fractures - shoulder, hip Past Surgical History: Reports: Hx Section - X3, Hx Orthopedic Surgery - Hip surgeries, Hx Tubal Ligation - Immunizations Hx Diphtheria, Pertussis, Tetanus Vaccination: Yes Vertical Provider Document - CONSTITUTIONAL Agree With Documented VS: Yes Exam Limitations: No Limitations General Appearance: WD/WN, No Apparent Distress - INFECTION CONTROL TRAVEL OUTSIDE OF THE [place] IN LAST 30 DAYS: No - HEENT HEENT: Atraumatic, Normocephalic - NECK Neck: Normal Inspection - RESPIRATORY Respiratory: No Respiratory Distress - CARDIOVASCULAR Pulses: Normal: Dorsalis pedis - MUSCULOSKELETAL/EXTREMETIES Musculoskeletal/Extremeties: MAEW, Tender - Left midfoot tenderness, no ecchymosis, no swelling, no deformity, no obvious injury, No Edema. negative: Eccymosis - NEURO Level of Consciousness: Awake, Alert, Appropriate Motor/Sensory: No Motor Deficit, No Sensory Deficit - DERM Integumentary: Warm, Dry, No Rash Course - Re-evaluation Re-evalutation: 11/03/20 18:30 Patient without any acute fracture, will immobilize and treat as sprain at this time. Patient will be encouraged to follow-up with orthopedics for any pe rsistent pain or problems. - Vital Signs Vital signs: Temp Pulse Resp BP Pulse Ox 98.2 F 103 H 20 130/58 H 99 11/03/20 17:07 11/03/20 17:07 11/03/20 17:07 11/03/20 17:07 11/03/20 17:07 - Laboratory Results Critical Laboratory Results Reviewed: No Critical Results - Radiology Results Critical Radiology Results Reviewed: No Critical Results Procedures - Immobilization Left Foot Pre-Proc Neuro Vasc Exam: Normal Immobilizer type: Danilo wrap, Post-op shoe Performed by: PCT Post-Proc Neuro Vasc Exam: Normal Alignment checked and good: Yes Discharge - Discharge Clinical Impression: Sprain of foot, left Qualifiers: Encounter type: initial encounter Qualified Code(s): S93.602A - Unspecified sprain of left foot, initial encounter Condition: Stable Disposition: HOME, SELF-CARE Instructions: Danilo Wrap ([facility]), Ice Packs ([facility]), Oral Narcotic Medication ([facility]), Post-Op Shoe ([facility]), Sprain ([facility]) Additional Instructions: Return immediately for any new or worsening symptoms Followup with your primary care provider, call tomorrow to make a followup appointment Weightbearing as tolerated Follow-up with orthopedics for any persistent pain or problems, call tomorrow for an appointment Referrals: [facility] [Provider Group] - Follow up tomorrow
--- NOTE | 2020-11-03 18:24 | RADIOLOGY REPORT (SQ) ---
EXAM DESCRIPTION: FOOT LEFT COMPLETE IMAGES COMPLETED DATE/TIME: 11/03/2020 4:54 pm REASON FOR STUDY: L foot pain . COMPARISON: None. NUMBER OF VIEWS: Three views. TECHNIQUE: AP, lateral and oblique radiographic images acquired of the left foot. LIMITATIONS: None. FINDINGS: MINERALIZATION: Normal. BONES: No acute fracture or dislocation. No worrisome bone lesions. JOINTS: No effusions. SOFT TISSUES: No soft tissue swelling. No foreign body. OTHER: No other significant finding. IMPRESSION: NEGATIVE STUDY OF THE LEFT FOOT. NO RADIOGRAPHIC EVIDENCE OF ACUTE INJURY. TECHNICAL DOCUMENTATION: JOB ID: [id number] 2010 [employer]- All Rights Reserved Reading location - IP/workstation name: [email or web address]
[2020-11-03] MEDS ORDERED: HYDROCODONE/ACETAMINOPHEN 5-325 MG (6 TAB/ER DISP) PO PRN (18:30)
== END 2020-11-03 18:49 | disposition home or self-care (01) ==
LOC: ER 17:02
DX: S93.602A Unspecified sprain of left foot, initial encounter (principal); W10.9XXA Fall (on) (from) unspecified stairs and steps, initial encounter; F17.200 Nicotine dependence, unspecified, uncomplicated; J45.909 Unspecified asthma, uncomplicated
CPT/HCPCS: 99283; 73630; J3490

== ENCOUNTER 2020-11-14 17:58 | Emergency (ER) | payer MEDICAID ==
--- NOTE | 2020-11-14 19:19 | ER Document Report ---
HPI - HPI Time Seen by Provider: 11/14/20 19:13 Context: Patient is a 30-year-old female presents emergency department with a chief complaint of left foot pain. Patient was seen on November 03 and on October 31, she ended up slipping down some stairs. Patient has not followed up with orthopedics, but continues to have pain. She went to work today and felt some "popping." - ROS Systems Reviewed and Negative: Yes All other systems reviewed and negative - CONSTITUTIONAL Constitutional: DENIES: Fever, Chills - EENT EENT: DENIES: Sore Throat, Ear Pain, Nasal Drainage-Clear - RESPIRATORY Respiratory: DENIES: Trouble Breathing, Coughing - REPRODUCTIVE Reproductive: DENIES: : - MUSCULOSKELETAL Musculoskeletal: REPORTS: Extremity pain - Left ankle, Swelling - Left ankle - DERM Skin Color: Normal Skin Problems: None Past Medical History - General Information source: Patient - Social History Smoking Status: Unknown if Ever Smoked Family History: Reviewed & Not Pertinent Pulmonary Medical History: Reports: Hx Asthma Renal/ Medical History: Denies: Hx Peritoneal Dialysis Musculoskeletal Medical History: Reports Hx Arthritis Psychiatric Medical History: Reports: Hx Attention Deficit Hyperactivity Disorder, Hx Bipolar Disorder, Hx Depression Traumatic Medical History: Reports: Hx Fractures - shoulder, hip Past Surgical History: Reports: Hx Section - X3, Hx Orthopedic Surgery - Hip surgeries, Hx Tubal Ligation - Immunizations Hx Diphtheria, Pertussis, Tetanus Vaccination: Yes Vertical Provider Document - CONSTITUTIONAL Agree With Documented VS: Yes Exam Limitations: No Limitations General Appearance: No Apparent Distress - INFECTION CONTROL TRAVEL OUTSIDE OF THE [place] IN LAST 30 DAYS: No - HEENT HEENT: Atraumatic, Normocephalic, PERRLA - RESPIRATORY Respiratory: No Respiratory Distress - CARDIOVASCULAR Cardiovascular: Regular Rate, Regular Rhythm Pulses: Normal: Posterior tibial, Dorsalis pedis - MUSCULOSKELETAL/EXTREMETIES Musculoskeletal/Extremeties: FROM, Tender - Left foot, No Edema - NEURO Level of Consciousness: Awake, Alert, Appropriate Motor/Sensory: No Motor Deficit, No Sensory Deficit Course - Re-evaluation Re-evalutation: 11/15/20 X-ray did not show any fracture. Capillary refill less than 3 seconds. Dorsalis pedis and posterior tibial pulses 2+. No vascular compromise noted. Patient was placed in a splint. See procedure note. Strongly advised patient to follow-up with orthopedics, as she has not followed up with them. Follow-up precautions were given. Verbal discharge instructions were given to the patient. They verbalized understanding. They are stable for discharge. - Vital Signs Vital signs: Temp Pulse Resp BP Pulse Ox 98.1 F 99 16 134/78 H 100 11/14/20 18:38 11/14/20 18:38 11/14/20 18:38 11/14/20 18:38 11/14/20 18:38 - Laboratory Results Critical Laboratory Results Reviewed: No Critical Results - Radiology Results Critical Radiology Results Reviewed: No Critical Results Procedures - Immobilization Left Ankle Pre-Proc Neuro Vasc Exam: Normal Immobilizer type: Short Leg Posterior Performed by: RN Post-Proc Neuro Vasc Exam: Normal, Unchanged from pre-exam Alignment checked and good: Yes Discharge - Discharge Clinical Impression: Left ankle pain Qualifiers: Chronicity: acute Qualified Code(s): M25.572 - Pain in left ankle and joints of left foot Condition: Stable Disposition: HOME, SELF-CARE Additional Instructions: You were seen today in the emergency department for left foot pain. Your x-rays did not show any fractures at this time. You were placed in a splint for comfort. Wear the splint until you can follow-up with orthopedics. Do not get the splint wet. Please follow-up with orthopedics tomorrow. Ibuprofen 600 mg every 6 hours for pain. Referrals: [facility] [Provider Group] - Follow up in 3-5 days [facility] [Provider Group] - Follow up tomorrow [facility] [Provider Group] - Follow up tomorrow
--- NOTE | 2020-11-14 22:31 | RADIOLOGY REPORT (SQ) ---
EXAM DESCRIPTION: FOOT LEFT COMPLETE 11/14/2020 7:18 PM HOSPITAL UNIT CLERK CLINICAL HISTORY: 30 years Female, continued left foot pain; ; COMPARISON: Prior study from 11/03/2020 FINDINGS: 3 views were obtained. Visualized osseous structures are normal in appearance. Joint spaces are well-maintained. No acute fracture or dislocation is evident. IMPRESSION: No acute osseous anomaly.
[2020-11-14 23:10] VITALS: BP 109/72
== END 2020-11-14 23:10 | disposition home or self-care (01) ==
LOC: ER 17:58
DX: M79.672 Pain in left foot (principal); M25.572 Pain in left ankle and joints of left foot; M79.89 Other specified soft tissue disorders; W10.9XXA Fall (on) (from) unspecified stairs and steps, initial encounter
CPT/HCPCS: 99283